=== PATIENT | female | born 1960 | race Caucasian/White ===

== ENCOUNTER 2017-04-07 09:22 | Emergency (ER) | payer OTHER, BC ==
[2017-04-07] MEDS ORDERED: HYDROmorphone 1 MG/ML Syringe ONE (10:08)
[2017-04-07] MEDS ORDERED: Ondansetron 4 MG/2 ML SDV ONE (11:36)
--- NOTE | 2017-04-07 14:16 | CT ---
Head CT Technique: Multiple axial sections through the brain were obtained. Intravenous contrast was not utilized. Comparison: Previous head CT exam of 01/11/14. Findings: Ventricles along with basal cisterns and sulci over the convexities are within normal limits. No abnormal parenchymal densities are seen. No evidence of intracranial hemorrhage. No midline shift or mass effect is seen. Bone window settings were reviewed which show the visualized sinuses to appear clear. No acute calvarial abnormality is seen. Impression: 1. Nothing acute seen on noncontrast head CT exam. No significant change is seen from previous head CT study. Diagnostic code #1 Agree with preliminary report issued by [facility] ([facility] preliminary report dictated on 04/07/17, 11:44 AM Central Time)
--- NOTE | 2017-04-07 14:16 | CT ---
CT thoracic spine Technique: Multiple axial sections through the thoracic spine were obtained. Reconstructed coronal and sagittal images were reviewed. Findings: Scattered disc space narrowing and anterior endplate osteophytes are seen within the mid and lower thoracic spine. Vacuum disc phenomena seen within the T7-T8, T8-T9 and T9-T10 discs. Vertebral body heights are maintained. Vertebral bodies and posterior arches are intact with no fracture being seen. Degenerative apophyseal change is scattered throughout the thoracic spine. No abnormal subluxation is seen. No bony central canal stenosis is seen. No neural foraminal stenosis is seen. Impression: 1. Scattered degenerative change. No acute abnormality is seen on CT study of the thoracic spine. Diagnostic code #2 I agree with preliminary report issued by [facility] ([facility] preliminary report dictated on 04/07/17, 11:48 AM Central Time) CT lumbar spine Technique: Multiple axial sections through the lumbar spine were obtained. Reconstructed sagittal and coronal images were reviewed. Disc space narrowing is noted at L1-L2. Vertebral body heights are maintained. Minimal spondylolisthesis is seen at L4-L5 due to severe degenerative apophyseal change. Fairly severe degenerative apophyseal change is also noted on the right side at L5-S1. Mild diffuse circumferential disc bulges are seen. Posterior disc maintains a concave margin. No central canal stenosis or neural foraminal stenosis is seen. No fracture is seen. Impression: 1. Degenerative change as noted above. No acute abnormality is seen. Diagnostic code #2 I agree with preliminary report issued by [facility] ([facility] preliminary report dictated on 04/07/17, 11:48 AM Central Time)
--- NOTE | 2017-04-07 14:16 | CT ---
This exam was dictated with thoracic spine study
--- NOTE | 2017-04-07 14:17 | CR ---
Left hand: Four views of left hand were obtained. Comparison: No prior study. No fracture, dislocation or other bony abnormality is identified. Impression: 1. No abnormality is appreciated on left hand exam. Diagnostic code #1
== END 2017-04-07 12:10 ==
LOC: JD.ED 09:22
DX: S30.0XXA Contusion of lower back and pelvis, initial encounter (principal); S00.93XA Contusion of unspecified part of head, initial encounter; S20.229A Contusion of unspecified back wall of thorax, initial encounter; W19.XXXA Unspecified fall, initial encounter
CPT/HCPCS: 36415; 70450; 72128; 72131; 73130; 80053; 85025; 96374; 96375; 99284; J1170; J2405

== ENCOUNTER 2023-06-29 08:00 | Day surgery (SDC) | payer BC ==
[~2023-06-29 08:00] MED LIST: Sodium Chloride 0.9% 10 ML Syringe FLUSH PRN; Sodium Chloride 0.9% 10 ML Syringe FLUSH SCH
[2023-06-29] MEDS: Lactated Ringers 1,000 ML IV SCH (08:15)
[2023-06-29] MEDS: oxyCODONE ER 10 MG TAB.ER PO ONE (08:45)
[2023-06-29] MEDS: Acetaminophen 325 MG Tab PO ONE (08:45)
[2023-06-29] MEDS: Pregabalin 25 MG Cap PO ONE (08:45)
[2023-06-29] MEDS ORDERED: dexmedeTOMIDine HCl 200 MCG/2 ML SDV ONE (09:03)
[2023-06-29] MEDS ORDERED: Ropivacaine 0.5% 5 MG/ML 30 ML SDV ONE (09:03)
[2023-06-29] MEDS ORDERED: Bupivacaine 0.75%/D5W 2 ML Amp ONE (09:03)
[2023-06-29] MEDS ORDERED: fentaNYL 100 MCG/2 ML SDV ONE (09:06)
[2023-06-29] MEDS ORDERED: Midazolam 1 MG/ML 2 ML SDV ONE (09:06)
[2023-06-29] MEDS ORDERED: Propofol 200 MG/20 ML SDV ONE (09:06)
[2023-06-29] MEDS ORDERED: EPINEPHrine 1 MG/ML SDV ONE (09:07)
[2023-06-29] MEDS ORDERED: ceFAZolin 2 GM Vial ONE (09:07)
[2023-06-29] MEDS ORDERED: Dexamethasone 4 MG/ML 5 ML MDV ONE (09:51)
[2023-06-29] MEDS ORDERED: oxyCODONE 5 MG Tab PO PRN (11:26)
[2023-06-29] MEDS ORDERED: HYDROmorphone 0.5 MG/0.5 ML Syringe IVPUSH PRN (12:05)
[2023-06-29] MEDS ORDERED: fentaNYL 100 MCG/2 ML SDV IVPUSH PRN (12:05)
[2023-06-29] MEDS ORDERED: Ondansetron 4 MG/2 ML SDV ONE (12:08)
[2023-06-29] MEDS: Ondansetron 4 MG/2 ML SDV IVPUSH PRN (12:11)
[2023-06-29] MEDS ORDERED: Prochlorperazine 10 MG/2 ML SDV IVPUSH ONE (12:43)
[2023-06-29] MEDS: Prochlorperazine 10 MG/2 ML SDV IVPUSH PRN (12:50)
[2023-06-29] MEDS: Morphine 8 MG, EPINEPHrine 0.3 MG, Cefuroxime 750 MG, Ketorolac 30 MG, Sodium Chloride ... PRN (15:10)
[2023-06-29] MEDS: Bupivacaine 0.25% 10 ML SDV ONE (15:11)
[2023-06-29] MEDS: Triamcinolone Acetonide 40 MG/ML 1 ML SDV ONE (15:12)
[2023-06-29] MEDS: Vancomycin 1 GM SDV ONE (15:13)
[2023-06-29] MEDS: Tranexamic Acid 1,000 MG/10 ML Vial ONE (15:13)
[2023-06-29 18:03] VITALS: BP 130/70; PULSE 74
== END 2023-06-29 17:50 | disposition home or self-care (01) ==
LOC: JD.SDS 08:00
PROVIDERS: ATTEND Orthopaedic Surgery
DX: M17.0 Bilateral primary osteoarthritis of knee (principal); I10 Essential (primary) hypertension; E78.5 Hyperlipidemia, unspecified; R73.03 Prediabetes; Z79.899 Other long term (current) drug therapy; Z88.1 Allergy status to other antibiotic agents
CPT/HCPCS: 0055T; 20610; 27447; 73560; 82947; 97110; 97116; 97161; A9270; C1713; C1776; J0171; J0690; J0697; J0780; J1100; J1885; J2250; J2270; J2405; J2704; J2795; J3010; J3301; J3370; J3490; J7030; J7120; 01402; 64447